=== PATIENT | male | born 2000 | race Caucasian/White ===

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

== ENCOUNTER → 2020-04-06 | Outpatient (REF) | payer OTHER | LOC: M LABDRAWC 15:58 | PROVIDERS: ATTEND Internal Medicine Endocrinology, Diabetes & Metabolism | DX: E06.3 Autoimmune thyroiditis (principal) ==

== ENCOUNTER → 2021-05-24 | Outpatient (REF) | payer OTHER ==
[2021-05-24 16:55] LABS: FREE T4 1.35 NG/DL (0.78-1.33); THYROID STIMULATING HORMONE 3.06 uIU/ML (0.463-3.98)
== END ==
LOC: M LABDRAWC 15:37
PROVIDERS: ATTEND Nurse Practitioner Family
DX: E06.3 Autoimmune thyroiditis (principal)

== ENCOUNTER → 2021-10-29 | Outpatient (REF) | payer OTHER | LOC: M SFHCCLAY 15:42 | PROVIDERS: ATTEND Family Medicine | DX: Z00.00 Encounter for general adult medical examination without abnormal findings (principal); E03.9 Hypothyroidism, unspecified; Z53.9 Procedure and treatment not carried out, unspecified reason ==

== ENCOUNTER → 2021-10-30 | Outpatient (REF) | payer OTHER ==
[2021-10-30 16:31] LABS: FREE T4 0.94 NG/DL (0.78-1.33); THYROID STIMULATING HORMONE 5.22 uIU/ML (0.463-3.98)
== END ==
LOC: M SFHCCLAY 09:53
PROVIDERS: ATTEND Family Medicine
DX: Z00.00 Encounter for general adult medical examination without abnormal findings (principal); E03.9 Hypothyroidism, unspecified

== ENCOUNTER → 2022-04-29 | Outpatient (REF) | payer OTHER ==
[2022-04-29 17:25] LABS: FREE T4 1.31 NG/DL (0.76-1.46); THYROID STIMULATING HORMONE 1.24 uIU/ML (0.358-3.740)
== END ==
LOC: M LABDRAWC 16:00
PROVIDERS: ATTEND Nurse Practitioner Family
DX: E06.3 Autoimmune thyroiditis (principal)

== ENCOUNTER → 2022-10-02 | Outpatient (REF) | payer OTHER ==
[2022-10-02 19:25] LABS: FREE T4 1.56 NG/DL (0.89-1.76)
[2022-10-02 20:49] LABS: THYROID STIMULATING HORMONE 1.143 uIU/ML (0.55-4.78)
== END ==
LOC: M LABDRAWC 17:01
PROVIDERS: ATTEND Nurse Practitioner Family
DX: E06.3 Autoimmune thyroiditis (principal)

== ENCOUNTER → 2023-11-19 | Outpatient (REF) | payer OTHER ==
[2023-11-19 18:52] LABS: FREE T4 1.61 NG/DL (0.89-1.76); THYROID STIMULATING HORMONE 1.819 uIU/ML (0.55-4.78)
== END ==
LOC: M LABDRAWC 17:17
PROVIDERS: ATTEND Internal Medicine
DX: E06.3 Autoimmune thyroiditis (principal)

== ENCOUNTER → 2024-11-28 | Outpatient (REF) | payer OTHER ==
[2024-11-28 13:01] LABS: FREE T4 1.49 NG/DL (0.89-1.76); THYROID STIMULATING HORMONE 0.323 uIU/ML (0.55-4.78)
== END ==
LOC: M LABDRAWC 10:40
PROVIDERS: ATTEND Nurse Practitioner Family
DX: E06.3 Autoimmune thyroiditis (principal)